=== PATIENT | male | born 1975 | race Caucasian/White ===

== ENCOUNTER 2021-12-17 20:17 | Emergency (ER) | payer BC ==
[~2021-12-17] VITALS: Ht 182.9 cm; Wt 95.3 kg
[2021-12-17 20:29] VITALS: BP 129/91
--- NOTE | 2021-12-17 20:32 | NUR ---
PT AMBULATED TO BED #9
--- NOTE | 2021-12-17 20:39 | NUR ---
[employer] G[employer]ER AT BEDSIDE
--- NOTE | 2021-12-17 20:42 | NUR ---
X-Ray at bedside.
--- NOTE | 2021-12-17 20:42 | NUR ---
XRAY AT BEDSIDE
--- NOTE | 2021-12-17 20:44 | NUR ---
46 Y/O MALE BIB FAMILY, C/O C/P X9 HRS. PT STATES HE HAS NO PAIN BUT DESCRIBED "TIGHT AND TINGLY." ALSO COMPLAINS OF LETHARGIC AND LIGHT HEADED; A/OX4, GCS-15. DENIES COUGH, N/V/D, SOB; SKIN IS NORMAL, WARM, AND DRY. PT HAS UNLABORED BREATHING AND SPEAKING IN FULL SENTENCES. PT AMBULATES W/O ASSISTANCE. PT IS SITTING IN BED WITH HOB RAISED AND BED IN LOWEST SETTING, WITH RAIL UP X1. HX: HTN, HLD, COLON CA, BENIGN MASS ON KIDNEY (NORMAL FOR BLOOD IN URINE) NKA MED: LISINOPRIL, ATORVASTATIN SX: COLON RESECTION
[2021-12-17 20:48] LABS: BASOPHILS % (AUTO) 0.3 % (0.0-2.0); EOSINOPHILS # (AUTO) 0.2 K/uL (0-0.4); EOSINOPHILS % (AUTO) 2.6 % (0.0-4.0); HEMATOCRIT 42.9 % (36-52); HEMOGLOBIN 14.6 g/dL (12.0-18.0); LYMPHOCYTES % (AUTO) 23.3 % (20.5-51.1); MEAN CORPUSCULAR HEMOGLOBIN 31 pg (27-31); MEAN CORPUSCULAR HGB CONC 34 g/dL (33-37); MEAN CORPUSCULAR VOLUME 90.7 fL (80-94); MONOCYTES # (AUTO) 0.8 K/uL (0.8-1.0); MONOCYTES % (AUTO) 9.5 % (1.7-9.3); NEUTROPHILS # (AUTO) 5.4 K/uL (1.8-7.7); NEUTROPHILS % (AUTO) 64.3 % (42.2-75.2); PLATELET COUNT (AUTO) 223 K/uL (140-450); RED BLOOD CELL COUNT(AUTO) 4.73 MIL/uL (4.20-6.10); RED CELL DISTRIBUTION WIDTH 14.2 % (11.6-13.7); WHITE BLOOD COUNT (AUTO) 8.5 K/uL (4.8-10.8)
[2021-12-17 21:14] LABS: ANION GAP 10.5 (8-16); CARBON DIOXIDE 30.1 mmol/L (21-32); CREATININE 1.3 mg/dL (0.6-1.3); POTASSIUM 3.6 mmol/L (3.5-5.1); TOTAL BILIRUBIN 0.5 mg/dL (0.0-1.0)
[2021-12-17 21:18] LABS: LIPASE 79 U/L (73-393)
--- NOTE | 2021-12-17 22:08 | NUR ---
Dr. Hawk examining patient.
--- NOTE | 2021-12-17 22:24 | NUR ---
REPEAT TROPONIN COLLECTED AND WALKED TO LAB
[2021-12-17] MEDS ORDERED: ACETAMINOPHEN EXTRA STRENGTH 500 MG TAB PO ONE (22:30)
[2021-12-17] MEDS ORDERED: ACET-10509 PO (23:32)
[2021-12-17 23:44] VITALS: BP 127/88
--- NOTE | 2021-12-17 23:44 | NUR ---
Patient discharged with v/s stable. Written and verbal after care instructions given and explained. Patient alert, oriented and verbalized understanding of instructions. Ambulatory with steady gait. All questions addressed prior to discharge. ID band removed. Patient advised to follow up with PMD. Rx of acetaminophen given. Patient educated on indication of medication including possible reaction and side effects. Opportunity to ask questions provided and answered. vss, a/ox4, ambulatory, unlabored breathing, and calm demeanor.
== END 2021-12-17 23:44 | disposition home or self-care (01) ==
LOC: MED 20:17
DX: R07.89 Other chest pain (principal); I10 Essential (primary) hypertension; E78.5 Hyperlipidemia, unspecified; Z85.038 Personal history of other malignant neoplasm of large intestine; Z98.890 Other specified postprocedural states; Z79.899 Other long term (current) drug therapy
CPT/HCPCS: 36415; 71045; 80053; 83690; 83880; 84484; 85025; 93005; 99285; Q0092